=== PATIENT | female | born 1960 | race Caucasian/White ===

== ENCOUNTER 2020-09-28 11:15 | Outpatient (CLI) | payer BC, SELFPAY ==
--- NOTE | ~2020-09-28 | US_ITS ---
EXAMINATION: US venous doppler LE EXAM DATE: 09/28/2020 12:07 INDICATION: R60.9 - Edema, unspecified. Leg swelling. TECHNIQUE: Multiple grayscale, color flow and Doppler images of the lower extremity deep venous syste ms bilaterally were obtained and reviewed. There is no prior study for comparison. FINDINGS: Peroneal veins not well visualized. Right side: The right common femoral, femoral and profunda veins demonstrate normal color flow, respi ratory variation, augmentation and compressibility. Compressibility, color flow confirmed within the right popliteal, posterior tibial, and greater saphenous veins. Left side: The left common femoral, femoral and profunda veins demonstrate normal color flow, respira tory variation, augmentation and compressibility. Compressibility, color flow confirmed within the l eft popliteal, posterior tibial, and greater saphenous veins. Left calf edema. IMPRESSION: 1. No evidence of lower extremity deep venous thrombosis bilaterally. Reviewed, dictated and finalized at location B.
== END 2020-09-28 11:16 | disposition home or self-care (01) ==
LOC: ANHIMG 11:19
PROVIDERS: PCP Family Medicine; Visit Provider Family Medicine
DX: R60.9 Edema, unspecified (principal); I42.1 Obstructive hypertrophic cardiomyopathy
CPT/HCPCS: 93970

== ENCOUNTER → 2021-04-12 08:36 | Outpatient (CLI) | payer BC, SELFPAY ==
[2021-04-15 20:25] LABS: SARS-CoV-2 RNA PCR Negative
== END ==
PROVIDERS: PCP Family Medicine; Visit Provider Family Medicine
DX: Z20.822 Contact with and (suspected) exposure to COVID-19 (principal)
CPT/HCPCS: C9803; U0003; U0005

== ENCOUNTER → 2021-10-15 01:21 | Outpatient (CLI) | payer SELFPAY ==
[2021-10-15 17:33] LABS: SARS-CoV-2 RNA PCR Negative
== END ==
PROVIDERS: PCP Nurse Practitioner Family; Visit Provider Nurse Practitioner Family
DX: R68.89 Other general symptoms and signs (principal); Z20.822 Contact with and (suspected) exposure to COVID-19
CPT/HCPCS: C9803; U0003; U0005

== ENCOUNTER 2022-04-09 12:47 | Emergency (ER) | payer OTHER, SELFPAY ==
[2022-04-09 13:10] VITALS: BP 117/73; PULSE 77; RESP 20; TEMP 37.1; O2SAT 95
--- NOTE | 2022-04-09 13:34 | ED.URI ---
HPI - URI/Sore Throat General Chief Complaint: Upper Respiratory Infection Stated Complaint: cough,bodyaches Time Seen by Provider: 04/09/22 13:34 Source: patient Mode of arrival: ambulatory Limitations: no limitations History of Present Illness HPI Narrative: 61-year-old female presents with complaint of URI symptoms for 5 days. Reports that she had cough and nasal congestion that is improving. Still has sore throat, hoarse voice. States she is so fatigued she did not feel like she could go into work today. Afebrile. States if she did have a fever it was the 1st 1 or 2 days of symptoms and she did not check her temp. Denies nausea vomiting diarrhea. No chest pain or shortness breath. All systems reviewed and negative except as noted above. Related Data Home Medications Medication Instructions Recorded Confirmed furosemide 40 mg tablet 40 mg PO DAILY 04/09/22 04/09/22 metolazone 5 mg tablet 5 mg PO DAILY 04/09/22 04/09/22 spironolactone 25 mg tablet 25 mg PO DAILY 04/09/22 04/09/22 Allergies Allergy/AdvReac Type Severity Reaction Status Date / Time No Known Allergies Allergy Verified 04/09/22 13:17 Review of Systems Review of Systems: CONSTITUTIONAL: Denies fever, chills, or sweats. Reports fatigue. EYES: Denies visual changes, redness, or discharge. ENT: Denies rhinorrhea, congestion reports sore throat, , hoarse voice. Denies otalgia. CARDIOVASCULAR: Denies chest pain, palpitations, or edema. RESPIRATORY: Reports cough or dyspnea. GASTROINTESTINAL: Denies abdominal pain, nausea, vomiting, or diarrhea. GENITOURINARY: Denies dysuria or hematuria. SKIN: Denies rash or itching. MUSCULOSKELETAL: Denies back pain, joint pain, or myalgia. NEUROLOGIC: Denies headache, numbness, or weakness. PSYCHIATRIC: Denies anxiety or depression. All other systems reviewed are negative, except as documented in HPI. [facility] Past Medical History Medical History BMI 38.0-38.9,adult BMI 39.0-39.9,adult Family History Family History Mother Family history of cardiac disorder Other Diabetes mellitus Hypertension Social History Social History Smoking status: Never smoker Second hand tobacco smoke exposure: No Alcohol intake: current Comments At time of signature, agree with nursing past medical, surgical, social and family history. There is no relevant family history pertinent to the presenting complaint. Exam Narrative: GENERAL: This is a well-nourished, well-developed patient, in no apparent distress. HEAD: normocephalic, atraumatic. EYES: PERRL. Sclera clear/white. Vision is grossly intact. EARS: External ears normal, auditory canals clear and without drainage, TMs normal without perforation. Hearing grossly intact. NOSE: External nose normal with clear nasal drainage, erythema to nares. THROAT: Mucous membranes moist, posterior pharynx clear. NECK: Neck supple, non-tender without lymphadenopathy, masses or thyromegaly. CARDIOVASCULAR: Regular rate and rhythm without murmurs, gallops, or rubs. RESPIRATORY: Clear to auscultation. Breath sounds equal bilaterally. No wheezes, rales, or rhonchi. SKIN: warm, Dry, intact with no suspicious lesions or rash, good texture and turgor. NEURO: awake, alert, and oriented to person, place and time. There were no obvious focal neurologic abnormalities. EXTREMITIES: No joint tenderness, effusion, or edema noted. Course Course Level of Care: Express Care Visit Vital Signs Vital signs: Vital Signs Temperature 37.1 C 04/09/22 13:10 Pulse Rate 77 04/09/22 13:10 Respiratory Rate 20 04/09/22 13:10 Blood Pressure 117/73 04/09/22 13:10 Pulse Oximetry 95 04/09/22 13:10 Oxygen Delivery Room Air 04/09/22 13:10 Temperature 37.1 C 04/09/22 13:10 Pulse Rate 77 04/09/22 13:10 Re
== END 2022-04-09 14:04 | disposition home or self-care (01) ==
PROVIDERS: Emergency Provider Nurse Practitioner Family; PCP Family Medicine
DX: J10.1 Influenza due to other identified influenza virus with other respiratory manifestations (principal)
CPT/HCPCS: 87804; 99213; G0463

== ENCOUNTER 2022-07-21 17:34 | Outpatient (CLI) | payer BC, SELFPAY ==
--- NOTE | ~2022-07-21 | XR_ITS ---
EXAMINATION: XR knee RT 3V DATE: 07/21/2022 17:59 INDICATION: Unspecified injury of right lower leg, initial encounter. TECHNIQUE: 3 views of right knee were obtained. COMPARISON: Right femur radiographs 01/28/2010 FINDINGS: Bone alignment is normal. No fracture. There is moderate osteoarthritis of medial compartme nt and mild osteoarthritis of lateral and patellofemoral compartments. No knee joint effusion. IMPRESSION: 1. Moderate right knee osteoarthritis. Reviewed, dictated and finalized at location A.
== END 2022-07-21 17:35 | disposition home or self-care (01) ==
PROVIDERS: PCP Family Medicine; Visit Provider Physician Assistant Medical
DX: S89.91XA Unspecified injury of right lower leg, initial encounter (principal); T14.90XA Injury, unspecified, initial encounter; M17.11 Unilateral primary osteoarthritis, right knee
CPT/HCPCS: 73562